=== PATIENT | female | born 1975 | race Caucasian/White ===

== ENCOUNTER 2022-10-10 14:55 | Emergency (ER) | payer OTHER, SELFPAY ==
[2022-10-10 15:03] VITALS: BP 158/88; PULSE 106; RESP 18; TEMP 36.7; O2SAT 100; BMI 27.8
--- NOTE | 2022-10-10 15:25 | XR_ITS ---
[address] [address] Patient Name: FAVIO WOODWARD MRN: [id number] date: 1975 Sex: F Assigned Patient Location: ER Current Patient Location: ED.MAIN Accession/Order Number: [id number] Exam Date: 10/10/2022 16:05 Report Date: 10/10/2022 16:47 At the request of: GRICELDA LOPEZ Procedure: XR chest 1V EXAMINATION: XR chest 1V, 10/10/2022 4:05 PM EDT HISTORY: palpitations COMPARISON: None. TECHNIQUE: AP portable view of the chest performed. FINDINGS: Medical devices: None. Cardiomediastinal silhouette is within normal limits. The lungs are clear. No large pleural effusion, or pneumothorax. XR/XR chest 1V IMPRESSION: 1. No acute cardiopulmonary abnormality. Electronically authenticated by: JONO DEE Date: 10/10/2022 16:47
--- NOTE | 2022-10-10 15:25 | ECG_ITS ---
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
--- NOTE | 2022-10-10 15:32 | ED.GENADUL1 ---
Documented by User: JAS Shelton 10/10/22 17:10 HPI - General Adult General Chief complaint: Chest Pain Stated complaint: AFIB Time Seen by Provider: 10/10/22 15:07 Source: patient Mode of arrival: Wheelchair History of Present Illness HPI narrative: patient is a 47-year-old female who presents to the Emergency Room for evaluation of palpitations. Patient lives locally was at [place] for a [place] function when she began to feel a little bit itchy. Patient states she's had this in the past with seasonal ALLERGIES and took 12.5 mg Benadryl. She denies any difficulty breathing or lip swelling or tongue swelling at this time. She denied any abdominal pain. Patient states she then started to get palpitations and shortness of breath. Patient states she'ss been having these episodes for a couple weeks, was last seen in [place] [facility] with cell phone my chart at bedside showing normal thyroid, troponin, chest x-ray and laboratory studies. Patient states she met with her family doctor who ordered a outpatient stress test for in a couple weeks. Patient states she monitors her heart rate on her watch and notes that she has high blood pressure. Patient states when she exercises her heart rate gets to 130bpm and gives her a reading of atrial fibrillation which is her primary concern. patient notes some numbness and tingling to her lips, and fingertips. Patient states similar to prior episode she had some numbness into the left arm. Patient admits that she is very anxious and stressed out. Spouse showed up at bedside during medical interview and states that she had history of anxiety approximately eight years ago with similar symptoms. Related Data Previous Rx's Medication Instructions Recorded hydroxyzine HCl 50 mg tablet 50 mg PO BID PRN anxiety 5 days 10/10/22 #10 tabs Allergies Allergy/AdvReac Type Severity Reaction Status Date / Time amoxicillin Allergy Severe Verified 10/10/22 15:03 Penicillins Allergy Severe Verified 10/10/22 15:03 Review of Systems ROS Constitutional Denies: fever, chills or change in weight Eyes Denies: change in vision or blurry vision Ears, nose, mouth, and throat Denies: throat pain, neck pain or dry mouth Cardiovascular Reports: chest pain and palpitations Respiratory Reports: shortness of breath; Denies: cough Gastrointestinal Denies: abdominal pain, nausea or vomiting Genitourinary Denies: painful urination Musculoskeletal Denies: back pain Integumentary/Breast Reports: itching; Denies: rash Neurological Reports: numbness in extremities (tingling in fingertips and around her mouth); Denies: headache Psychiatric Reports: anxiety Endocrine Denies: excessive urination Hematologic/Lymphatic Denies: easy bruising Allergic/Immunologic Denies: hives Exam Narrative Exam Narrative: Nurses notes and vital signs reviewed and patient is not hypoxic. General: The patient appears well , but anxious, increased work of breathing on arrival concerning for hyperventilation, improved with conversation at bedside and the arrrival of her . Patient is resting comfortably on cart. Skin: Warm, dry, no pallor noted. Head: Normocephalic, atraumatic Neck: Supple, trachea mid-line, no tenderness, no lymphadenopathy Eye: Pupils are equal, round and reactive to light, EOMI Ears, Nose, Mouth, and Throat: TM are clear, normal light reflex, oral mucosa is moist, no posterior oropharynx erythema or hypertrophy, uvula is mid-line Cardiovascular: Regular Rate and Rhythm, patient borderline tachycardic when talking abouut symptoms. Question very subtle mitral valve prolapse Respiratory: Patient is in no distress, no accessory muscle use, lungs are clear to auscultation, no wheezing, rales or rhonchi. Chest Wall: no tenderness Back: non-tender, no CVA tenderness Musculoskeletal: normal ROM, no tenderness, no swelling GI: Normal bowel sounds, no tenderness to palpation, no masses appreciated. No rebound, guarding, or rigidity noted. Neurological: A&O x4 Psychiatric: Cooperative, but anxious. Constitutional Vital Signs, click to edit/add: Last Vital Signs Temp 98.0 F 10/10/22 15:03 Pulse 106 H 10/10/22 15:03 Resp 18 10/10/22 15:03 BP 158/88 H 10/10/22 15:03 Pulse Ox 100 10/10/22 15:03 O2 Del Method Room Air 10/10/22 15:03 Course Course Hospital Course: At the request of: GRICELDA LOPEZ Procedure: XR chest 1V EXAMINATION: XR chest 1V, 10/10/2022 4:05 PM EDT HISTORY: palpitations COMPARISON: None. TECHNIQUE: AP portable view of the chest performed. FINDINGS: Medical devices: None. Cardiomediastinal silhouette is within normal limits. The lungs are clear. No large pleural effusion, or pneumothorax. IMPRESSION: 1. No acute cardiopulmonary abnormality. Electronically authenticated by: JONO DEE Date: 10/10/2022 16:47 Vital Signs Vital signs: Vital Signs Temperature 98.0 F 10/10/22 15:03 Pulse Rate 106 H 10/10/22 15:03 Respiratory Rate 18 10/10/22 15:03 Blood Pressure 158/88 H 10/10/22 15:03 Pulse Oximetry 100 10/10/22 15:03 Oxygen Delivery Method Room Air 10/10/22 15:03 Temperature 98.0 F 10/10/22 15:03 Pulse Rate 106 H 10/10/22 15:03 Respiratory Rate 18 10/10/22 15:03 Blood Pressure 158/88 H 10/10/22 15:03 Pulse Oximetry 100 10/10/22 15:03 Oxygen Delivery Method Room Air 10/10/22 15:03 Medical Decision Making MDM Narrative Medical decision making narrative: discussed patient's concerns of palpitations, age or fibrillation on her Smart watch and symptoms. Patient reports family history of coronary disease in her mother in the mid 50s. Patient has outpatient cardiac stresss test ordered, I feel she would benefit from a cardiac Holter monitor given the nature of her symptoms. Reviewed labs from prior [place] [facility] visit on patient's phone. Will check blood count and electrolytes along with troponin did not repeat thyroid. Patient given Ativan 1 mg by mouth for her anxiety. Encourage slow deep focus breathing. nurse attempted to administer Ativan, patient declined. Stating that she did not need the medication at this time. patient reevaluated not that she is feeling much better, she is agreeable with Holter monitor for three days and will contact her family doctor Thursday to see if she should wear it longer pending if she has symptoms. She'll specifically look to see if there is any correlation between the time if her symptoms her watch reading of atrial fibrillation and her Holter monitor reading. She may return to the Emergency Room if her symptoms persist or worsen. We discussed a prescription of Atarax to help with her short-term anxiety. Patient thankful had no further concerns or questions.she'll focus on a potassium rich diet and by mouth fluids. The patient is to followup with primary care physician in next 2-3 days or to return to the emergency department should any of the signs or symptoms worsen or new symptoms develop. Patient had questions answered. The patient agrees with the following Diagnosis and Treatment plan and the patient will be discharged home. Lab Data Labs: Lab Results 10/10/22 Range/Units 15:48 WBC 6.6 (4.0-11.0) 10^3/uL RBC 4.04 L (4.20-5.40) 10^6/uL Hgb 11.5 L (12.0-16.0) g/dL Hct 34.4 L (36.0-48.0) % MCV 85.1 (81.0-99.0) fL MCH 28.5 (26.7-34.0) pg MCHC 33.4 (29.9-35.2) g/dL RDW 14.3 (11.0-15.0) % Plt Count 280 (150-450) 10^3/uL MPV 9.5 (9.5-13.5) fL Neut % (Auto) 63.9 (43.0-75.0) % Lymph % (Auto) 21.7 (20.5-60.0) % Nicholas % (Auto) 8.2 (1.7-12.0) % Eos % (Auto) 5.3 (0.9-7.0) % Baso % (Auto) 0.6 (0.2-2.0) % Neut # (Auto) 4.2 (1.4-6.5) 10^3/uL Lymph # (Auto) 1.4 (1.2-3.8) 10^3/uL Nicholas # (Auto) 0.5 (0.3-0.8) 10^3/uL Eos # (Auto) 0.4 (0.0-0.7) 10^3/uL Baso # (Auto) 0.0 (0.0-0.1) 10^3/uL Abs Immat Gran (auto) 0.02 (0.00-0.03) 10^3/uL Imm/Tot Granulo (auto) 0.3 (0.0-0.5) % Sodium 135 L (136-145) mmol/L Potassium 3.4 L (3.5-5.1) mmol/L Chloride 99 (98-107) mmol/L Carbon Dioxide 23.9 (21.0-32.0) mmol/L Anion Gap 15.5 BUN 13.0 (7.0-18.0) mg/dL Creatinine 0.70 (0.55-1.02) mg/dL Est GFR ( Amer) >60 (>=60) Est GFR (Non-Af Amer) >60 (>=60) BUN/Creatinine Ratio 18.6 Glucose 99 (74-106) mg/dL Calcium 8.4 L (8.5-10.1) mg/dL Troponin I High Sens 6.2 (4.0-51.3) pg/mL Urine Color Lt. yellow (YELLOW) Urine Clarity Clear (CLEAR) Urine pH 6.0 (5.0-9.0) Ur Specific [place] 1.010 (1.005-1.025) Urine Protein Negative (NEG/TRACE) mg/dL Urine Glucose (UA) Negative (NEGATIVE) mg/dL Urine Ketones 15 A (NEGATIVE) mg/dL Urine Occult Blood Negative (NEGATIVE) Urine Nitrite Negative (NEGATIVE) Urine Bilirubin Negative (NEGATIVE) Urine Urobilinogen 0.2 (0.2-1.0) EU/dL Ur Leukocyte Esterase Negative (NEGATIVE) ECG Data Attestation: ?I have reviewed the pertinent ECG results. Interpretation: EKG interpretation: Emergency Department physician interpretation, normal sinus rhythm 99 bpm , no ectopy, no ST segment elevation, normal axis. Discharge Plan Discharge Chief Complaint: Chest Pain Clinical Impression: Heart palpitations Patient Disposition: Home, Self-Care Time of Disposition Decision: 17:03 Condition: Good Prescriptions / Home Meds: New hydroxyzine HCl 50 mg tablet 50 mg PO BID PRN (Reason: anxiety) 5 Days Qty: 10 0RF Instructions: Heart Palpitations (ED) Stand Alone Forms: Portal Instructions Referrals: BERNARDO WALLACE [Primary Care Provider] - As soon as possible Physician,Non-Staff, [Physician] - 1 week Discharge Date/Time: 10/10/22 17:14 Documented by User: Iraj Isaac MD 10/10/22 18:37 HPI - General Adult General Chief complaint: Chest Pain Stated complaint: AFIB Time Seen by Provider: 10/10/22 15:07 Related Data Previous Rx's Medication Instructions Recorded hydroxyzine HCl 50 mg tablet 50 mg PO BID PRN anxiety 5 days 10/10/22 #10 tabs Allergies Allergy/AdvReac Type Severity Reaction Status Date / Time amoxicillin Allergy Severe Verified 10/10/22 15:03 Penicillins Allergy Severe Verified 10/10/22 15:03 Exam Constitutional Vital Signs, click to edit/add: Last Vital Signs Temp 98.0 F 10/10/22 15:03 Pulse 106 H 10/10/22 15:03 Resp 18 10/10/22 15:03 BP 158/88 H 10/10/22 15:03 Pulse Ox 100 10/10/22 15:03 O2 Del Method Room Air 10/10/22 15:03 Course Course Hospital Course: At the request of: GRICELDA LOPEZ Procedure: XR chest 1V EXAMINATION: XR chest 1V, 10/10/2022 4:05 PM EDT HISTORY: palpitations COMPARISON: None. TECHNIQUE: AP portable view of the chest performed. FINDINGS: Medical devices: None. Cardiomediastinal silhouette is within normal limits. The lungs are clear. No large pleural effusion, or pneumothorax. IMPRESSION: 1. No acute cardiopulmonary abnormality. Electronically authenticated by: JONO DEE Date: 10/10/2022 16:47 Vital Signs Vital signs: Vital Signs Temperature 98.0 F 10/10/22 15:03 Pulse Rate 106 H 10/10/22 15:03 Respiratory Rate 18 10/10/22 15:03 Blood Pressure 158/88 H 10/10/22 15:03 Pulse Oximetry 100 10/10/22 15:03 Oxygen Delivery Method Room Air 10/10/22 15:03 Temperature 98.0 F 10/10/22 15:03 Pulse Rate 106 H 10/10/22 15:03 Respiratory Rate 18 10/10/22 15:03 Blood Pressure 158/88 H 10/10/22 15:03 Pulse Oximetry 100 10/10/22 15:03 Oxygen Delivery Method Room Air 10/10/22 15:03 Medical Decision Making Lab Data Labs: Lab Results 10/10/22 Range/Units 15:48 WBC 6.6 (4.0-11.0) 10^3/uL RBC 4.04 L (4.20-5.40) 10^6/uL Hgb 11.5 L (12.0-16.0) g/dL Hct 34.4 L (36.0-48.0) % MCV 85.1 (81.0-99.0) fL MCH 28.5 (26.7-34.0) pg MCHC 33.4 (29.9-35.2) g/dL RDW 14.3 (11.0-15.0) % Plt Count 280 (150-450) 10^3/uL MPV 9.5 (9.5-13.5) fL Neut % (Auto) 63.9 (43.0-75.0) % Lymph % (Auto) 21.7 (20.5-60.0) % Nicholas % (Auto) 8.2 (1.7-12.0) % Eos % (Auto) 5.3 (0.9-7.0) % Baso % (Auto) 0.6 (0.2-2.0) % Neut # (Auto) 4.2 (1.4-6.5) 10^3/uL Lymph # (Auto) 1.4 (1.2-3.8) 10^3/uL Nicholas # (Auto) 0.5 (0.3-0.8) 10^3/uL Eos # (Auto) 0.4 (0.0-0.7) 10^3/uL Baso # (Auto) 0.0 (0.0-0.1) 10^3/uL Abs Immat Gran (auto) 0.02 (0.00-0.03) 10^3/uL Imm/Tot Granulo (auto) 0.3 (0.0-0.5) % Sodium 135 L (136-145) mmol/L Potassium 3.4 L (3.5-5.1) mmol/L Chloride 99 (98-107) mmol/L Carbon Dioxide 23.9 (21.0-32.0) mmol/L Anion Gap 15.5 BUN 13.0 (7.0-18.0) mg/dL Creatinine 0.70 (0.55-1.02) mg/dL Est GFR ( Amer) >60 (>=60) Est GFR (Non-Af Amer) >60 (>=60) BUN/Creatinine Ratio 18.6 Glucose 99 (74-106) mg/dL Calcium 8.4 L (8.5-10.1) mg/dL Troponin I High Sens 6.2 (4.0-51.3) pg/mL Urine Color Lt. yellow (YELLOW) Urine Clarity Clear (CLEAR) Urine pH 6.0 (5.0-9.0) Ur Specific [place] 1.010 (1.005-1.025) Urine Protein Negative (NEG/TRACE) mg/dL Urine Glucose (UA) Negative (NEGATIVE) mg/dL Urine Ketones 15 A (NEGATIVE) mg/dL Urine Occult Blood Negative (NEGATIVE) Urine Nitrite Negative (NEGATIVE) Urine Bilirubin Negative (NEGATIVE) Urine Urobilinogen 0.2 (0.2-1.0) EU/dL Ur Leukocyte Esterase Negative (NEGATIVE) Critical Care Time Critical Care Time Attestation: I, Dr Isaac, have reviewed the above progress note and course of action in the ER; agree with the above. I have personally seen and evaluated this patient, gone over history and physical, and discussed disposition and treatment plan with the patient. Discharge Plan Discharge Chief Complaint: Chest Pain Clinical Impression: Heart palpitations Patient Disposition: Home, Self-Care Time of Disposition Decision: 17:03 Condition: Good Prescriptions / Home Meds: New hydroxyzine HCl 50 mg tablet 50 mg PO BID PRN (Reason: anxiety) 5 Days Qty: 10 0RF Instructions: Heart Palpitations (ED) Stand Alone Forms: Portal Instructions Referrals: BERNARDO WALLACE [Primary Care Provider] - As soon as possible Physician,Non-Staff, [Physician] - 1 week Discharge Date/Time: 10/10/22 17:14
--- NOTE | 2022-10-10 15:35 | CA_ITS ---
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1975 Requested By: [id number] Order Number: [id number] Reading MD: CHINMAY BARNES Interpretive Statements Predominant rhythm is sinus with average rate of 82 bpm Tachycardia - max rate of 154 bpm - longest duration of 33min 21sec w/ rate of 116-130 bpm Bradycardia - min rate of 48 bpm - longest episode of 39sec with rate of 39-48 bpm Ventricular ectopy - 4 PVC Patient triggered events: 11 - associated with fluttering - associated with rate of 110, 102, 119, 112 and 106 w/ remainder NSR Impression: Predominant rhythm is sinus with average rate of 82 bpm Fastest rate of 154 bpm and slowest rate of 48 bpm 4 PVC NO pauses of blocks Electronically Signed On 10-22-2022 21:45:24 EDT by CHINMAY BARNES
[2022-10-10] MEDS: 0.9 % SODIUM CHLORIDE 1,000 ML 999 ML IV (15:51)
[2022-10-10 15:55] LABS: Basophils Percent Auto 0.6 % (0.2-2.0); Eosinophils Absolute Auto 0.4 10^3/uL (0.0-0.7); Eosinophils Percent Auto 5.3 % (0.9-7.0); Hematocrit 34.4 % (36.0-48.0); Hemoglobin 11.5 g/dL (12.0-16.0); Immature Granulocytes Abs Auto 0.02 10^3/uL (0.00-0.03); Immature Granulocytes Pct Auto 0.3 % (0.0-0.5); Lymphocytes Absolute Auto 1.4 10^3/uL (1.2-3.8); Lymphocytes Percent Auto 21.7 % (20.5-60.0); Mean Corpuscular HGB Conc 33.4 g/dL (29.9-35.2); Mean Corpuscular Hemoglobin 28.5 pg (26.7-34.0); Mean Corpuscular Volume 85.1 fL (81.0-99.0); Mean Platelet Volume 9.5 fL (9.5-13.5); Monocytes Absolute Auto 0.5 10^3/uL (0.3-0.8); Monocytes Percent Auto 8.2 % (1.7-12.0); Neutrophils Absolute Auto 4.2 10^3/uL (1.4-6.5); Neutrophils Percent Auto 63.9 % (43.0-75.0); Platelet Count 280 10^3/uL (150-450); Red Blood Count 4.04 10^6/uL (4.20-5.40); Red Cell Distribution Width 14.3 % (11.0-15.0); White Blood Count 6.6 10^3/uL (4.0-11.0)
[2022-10-10 15:56] LABS: Bilirubin Urine NEGATIVE (NEGATIVE); Blood Urine NEGATIVE (NEGATIVE); Clarity Urine CLEAR (CLEAR); Color Urine LT. YELLOW (YELLOW); Glucose Urine UA NEGATIVE (NEGATIVE); Ketones Urine 15 mg/dL (NEGATIVE); Leukocyte Esterase Urine NEGATIVE (NEGATIVE); Nitrite Urine NEGATIVE (NEGATIVE); Protein Urine NEGATIVE (NEG/TRACE); Urine Microscopic Indicated NO; Urobilinogen Urine 0.2 EU/dL (0.2-1.0)
[2022-10-10 16:13] LABS: Troponin I High Sensitivity 6.2 pg/mL (4.0-51.3)
[2022-10-10 16:25] LABS: Anion Gap 15.5; BUN Creatinine Ratio 18.6; Calcium 8.4 mg/dL (8.5-10.1); Carbon Dioxide 23.9 mmol/L (21.0-32.0); Chloride 99 mmol/L (98-107); Estimated GFR (African America >60 (>=60); Estimated GFR (Non-African Ame >60 (>=60); Glucose 99 mg/dL (74-106); Potassium 3.4 mmol/L (3.5-5.1); Sodium 135 mmol/L (136-145)
== END 2022-10-10 17:14 | disposition home or self-care (01) ==
PROVIDERS: Personal Emergency Response Attendant; Emergency Provider Emergency Medicine; PCP Internal Medicine
DX: R00.2 Palpitations (principal)
CPT/HCPCS: 36415; 71045; 80048; 81003; 84484; 85025; 93005; 93242; 99285